=== PATIENT | female | born 2005 | race Hispanic/Latino ===

== ENCOUNTER 2024-11-18 12:42 | Emergency (ER) | payer SELFPAY | END 2024-11-18 14:47 | disposition home or self-care (01) | LOC: ERS 12:42 | DX: O99.891 Other specified diseases and conditions complicating pregnancy (principal); R10.30 Lower abdominal pain, unspecified; Z3A.01 Less than 8 weeks gestation of pregnancy | CPT/HCPCS: 76801 ==